=== PATIENT | male | born 1940 | race Caucasian/White ===

== ENCOUNTER 2024-08-03 17:56 | Emergency (ER) | payer OTHER ==
[2024-08-03 19:16] LABS: Specific Gravity 1.012 (1.005-1.030); Sqamous Epithelial None Seen /HPF (None Seen); Urine Bacteria <20 /HPF (<20); Urine Bilirubin NEGATIVE (Negative); Urine Blood Negative (Negative); Urine Clarity Extremely Turbid (Clear); Urine Color Light-Yellow (Yellow); Urine Crystals Unidentified Few /HPF (None Seen); Urine Culture Reflex Order REFLEXED; Urine Glucose NEGATIVE (Negative); Urine Ketones NEGATIVE (Negative); Urine Microscopic Reflex YN ORDER UMIC; Urine Nitrite NEGATIVE (Negative); Urine Protein NEGATIVE (Negative); Urine RBC <5 /HPF (None Seen); Urine Urobilinogen Normal (Normal); Urine WBC >50 /HPF (<5); Urine WBC Clump Rare /HPF (None Seen); Urine Yeast (Budding) Occasional /HPF (None Seen); Urine pH 6.5 (5.0-7.0)
--- NOTE | 2024-08-03 19:25 | ER ---
Nurse's Notes [facility] Name: Christopher Hinson Age: 84 yrs Sex: Male : 1940 Arrival Date: 08/03/2024 Time: 17:56 Bed IW2 Private MD: Diagnosis: UTI/ Urinary tract infection, site not specified Presentation: 08/03 18:52 Chief complaint: Patient states: Flynn not draining today, only 200 mL out, pt reports jl7 pain to suprapubic area. Coronavirus screen: At this time, the client does not indicate any symptoms associated with coronavirus-19. Ebola Screen: No symptoms or risks identified at this time. Initial Sepsis Screen: Does the patient meet any 2 criteria? No. Patient's initial sepsis screen is negative. Does the patient have a suspected source of infection? No. Patient's initial sepsis screen is negative. Risk Assessment: Do you want to hurt yourself or someone else? Patient reports no desire to harm self or others. 18:52 Method Of Arrival: Wheelchair [facility] 18:52 Acuity: YARI 3 jl7 18:52 Onset of symptoms was August 03, 2024. jl7 Triage Assessment: 19:31 General: Appears in no apparent distress. uncomfortable, Behavior is calm, cooperative. cm10 Respiratory: No deficits noted. Airway is patent Respiratory effort is even, unlabored, Respiratory pattern is. Historical: - Allergies: 19:31 No Known Allergies; cm10 - Immunization history:: Adult Immunizations up to date. - Infectious Disease History:: Denies. - Social history:: Smoking status: Patient denies any tobacco usage or history of. Screenin:30 [facility] ED Fall Risk Assessment (Adult) History of falling in the last 3 months, cm10 including since admission No falls in past 3 months (0 pts) Confusion or Disorientation No (0 pts) Intoxicated or Sedated No (0 pts) Impaired Gait Yes (1 pt) Mobility Assist Device Used Yes (1 pt) Altered Elimination Yes (1 pt) Score/Fall Risk Level 3 or more points = High Risk Oriented to surroundings, Maintained a safe environment, Hourly rounding (assess needs \T\ fall precautionary measures) done. Abuse screen: Denies threats or abuse. Denies injuries from another. Nutritional screening: No deficits noted. Tuberculosis screening: No symptoms or risk factors identified. Vital Signs: 18:52 BP 137 / 80; Pulse 55; Resp 15; Temp 97.6; Pulse Ox 97% ; Weight 98.43 kg; jl7 ED Course: 18:00 Patient arrived in ED. im 18:00 Poncho Callow[facility]C [facility]5 18:00 Ishaan Leyva MD is Attending Physician. dr5 18:53 Triage completed. jl7 19:00 Flynn cath removed intact, balloon deflated, changed by provider. cm10 19:30 Flynn cath inserted, using sterile technique, 16 Fr., balloon inflated, to gravity cm10 drainage, urine specimen collected. other inserted by provider. 19:31 Patient has correct armband on for positive identification. Provided Education on: cm10 follow-up instructions. 19:31 Arm band placed on. cm10 19:32 No provider procedures requiring assistance completed. Patient did not have IV access cm10 during this emergency room visit. Administered Medications: No medications were administered Medication: 19:30 VIS not applicable for this client. cm10 Outcome: 19:25 Discharge ordered by MD. dr5 19:31 Discharged to home via wheelchair, cm10 19:31 Condition: good 19:31 Discharge instructions given to patient, Instructed on discharge instructions, follow up and referral plans. medication usage, Demonstrated understanding of instructions, follow-up care, medications, Prescriptions given X 1, 19:32 Patient left the ED. cm10 Signatures: Pamella Casillas RN RN jl7 Svetlana Zimmerman Clarissa, RN RN cm10 Poncho Calloway FNP-C FNP-Cdr5 Corrections: (The following items were deleted from the chart) 18:53 18:53 Allergies: No Known Allergies; [facility] jl
--- NOTE | 2024-08-03 19:25 | EDPHYS ---
Physician Documentation [facility] Name: Christopher Hinson Age: 84 yrs Sex: Male : 1940 Arrival Date: 08/03/2024 Time: 17:56 Bed IW2 Private MD: ED Physician Ishaan Leyva HPI: 08/03 18:46 This 84 yrs old Male presents to ER via Unassigned with complaints of Problem dr5 With Urinary Catheter, Abdominal Pain. 18:46 Onset: The symptoms/episode began/occurred acutely. Patient is an 84 year old male with dr5 urinary catheter complaining of decreased drainage and suprapubic abdominal pain. Patient has catheter changed out monthly with the last time being 07/18/24. Patient has thakkar catheter due to mobility problems as well as enlarged prostate.. Historical: - Allergies: 19:31 No Known Allergies; cm10 - Immunization history:: Adult Immunizations up to date. - Infectious Disease History:: Denies. - Social history:: Smoking status: Patient denies any tobacco usage or history of. ROS: 18:46 Constitutional: as per hpi dr5 Exam: 18:46 Constitutional: This is a well developed, well nourished patient who is awake, alert, dr5 and in no acute distress. Head/Face: Normocephalic, atraumatic. Eyes: Pupils equal round and reactive to light, extra-ocular motions intact. Lids and lashes normal. Conjunctiva and sclera are non-icteric and not injected. Cornea within normal limits. Periorbital areas with no swelling, redness, or edema. Neck: Trachea midline, no thyromegaly or masses palpated, and no cervical lymphadenopathy. Supple, full range of motion without nuchal rigidity, or vertebral point tenderness. No Meningismus. Chest/axilla: Normal chest wall appearance and motion. Nontender with no deformity. No lesions are appreciated. Cardiovascular: Regular rate and rhythm with a normal S1 and S2. Normal PMI, no JVD. No pulse deficits. Respiratory: Lungs have equal breath sounds bilaterally, clear to auscultation. No rales, rhonchi or wheezes noted. No increased work of breathing, no retractions or nasal flaring. 18:46 Abdomen/GI: Palpation: moderate abdominal tenderness, in the suprapubic area, Vital Signs: 18:52 BP 137 / 80; Pulse 55; Resp 15; Temp 97.6; Pulse Ox 97% ; Weight 98.43 kg; jl7 Procedures: 19:12 Thakkar changed by me. Placed a 16 welsh thakkar in with good urine return. Sterile dr5 procedure used.. MDM: 18:01 Medical Screening Exam initiated dr5 19:36 Differential diagnosis: viral Infection, UTI, Indwelling Catheter Blockage. Data dr5 reviewed: vital signs, nurses notes. I considered the following discharge prescriptions or medication management in the emergency department. Care significantly affected by the following chronic conditions: BPH. Care significantly affected by the following Social Determinants of Health: Poor access to healthcare and/or lack of insurance, Poor access to transportation. Counseling: I had a detailed discussion with the patient and/or guardian regarding the historical points, exam findings, and any diagnostic results supporting the discharge/admit diagnosis, the presence of at least one elevated blood pressure reading (>120/80) during this emergency department visit, lab results, the need for outpatient follow up, for definitive care, a family practitioner, to return to the emergency department if symptoms worsen or persist or if there are any questions or concerns that arise at home. ED course: Thakkar changed with approximately 600ml of urinary output. UA revealed UTI. will give vantin and have patient follow up with primary care doctor. Symptoms have resolved and no complaints. All questions answered.. 08/03 19:00 Order name: Urinalysis w/ reflexes; Complete Time: 19:18 dr5 08/03 19:20 Order name: Urine Culture EDMS Administered Medications: No medications were administered Disposition: 08/04 10:54 Co-signature as Attending Physician, Ishaan Leyva MD I reviewed the patient's care rn provided by the Advanced Practice Provider and agree with the diagnosis and treatment plan. Disposition Summary: 08/03/24 19:25 Discharge Ordered Notes: Location: Home dr5 Condition: Stable dr5 Diagnosis - UTI/ Urinary tract infection, site not specified dr5 Followup: dr5 - With: Emergency Department - When: As needed - Reason: Worsening of condition Followup: dr5 - With: Private Physician - When: 1 - 2 days - Reason: Recheck today's complaints, Continuance of care, Re-evaluation by your physician Discharge Instructions: - Discharge Summary Sheet dr5 - Indwelling Urinary Catheter Care, Adult dr5 - Urinary Tract Infection, Adult dr5 Forms: - Medication Reconciliation Form dr5 - Antibiotic Education dr5 - Patient Portal Instructions dr5 - Leadership Thank You Letter dr5 Prescriptions: - cefpodoxime 200 mg Oral tablet - take 1 tablet ORAL route every 12 hours for 10 days with food; 20 tablet; dr5 Refills: 0, Product Selection Permitted Signatures: Dispatcher [employer] EDIshaan Dorado MD MD rn Pamella Casillas, RN RN jl7 Hannah Robertson RN RN cm10 Poncho Calloway, DIELECTRIC TESTING MACHINE OPERATOR-C DIELECTRIC TESTING MACHINE OPERATOR-[facility]5 Corrections: (The following items were deleted from the chart) 08/03 18:53 18:53 Allergies: No Known Allergies; ileana jl7
[2024-08-03 19:36] VITALS: BP 137/80; TEMP 97.6; O2SAT 97
== END 2024-08-03 19:32 | disposition home or self-care (01) ==
LOC: ER 17:56
DX: N39.0 Urinary tract infection, site not specified (principal)
CPT/HCPCS: 51702; 81001; 87086; 87088; 99284